=== PATIENT | female | born 1980 | race Caucasian/White ===

== ENCOUNTER → 2018-10-11 14:32 | Outpatient (CLI) | payer SELFPAY | END | disposition home or self-care (01) | LOC: D.RAD 14:32 | PROVIDERS: ATTEND Nurse Practitioner Family | DX: R10.9 Unspecified abdominal pain (principal) ==

== ENCOUNTER 2020-07-30 15:00 | Outpatient (CLI) | payer MEDICAID | END 2020-07-30 23:59 | disposition home or self-care (01) | LOC: D.MAMMO 15:00 | PROVIDERS: ATTEND Obstetrics & Gynecology Obstetrics | DX: Z12.31 Encounter for screening mammogram for malignant neoplasm of breast (principal) ==